=== PATIENT | male | born 1985 | race Two or more races ===

== ENCOUNTER 2018-08-14 21:30 | Emergency (ER) | payer OTHER ==
[~2018-08-14] VITALS: Ht 167.6 cm; Wt 79.4 kg
[2018-08-14 21:42] VITALS: BP 119/77
[2018-08-14] MEDS ORDERED: KETOROLAC TROMETHAMINE INJ 60 MG/2 ML VIAL IM ONE (22:30)
[2018-08-14] MEDS ORDERED: CYCLOBENZAPRINE 10 MG TABLET PO ONE (22:30)
== END 2018-08-14 22:40 | disposition home or self-care (01) ==
LOC: ER 21:32
DX: M54.42 Lumbago with sciatica, left side (principal)